=== PATIENT | female | born 1985 | race Caucasian/White ===

== ENCOUNTER 2020-08-05 13:13 | Outpatient (REF) | payer BC, SELFPAY ==
[2020-08-10 03:11] LABS: HPV mRNA E6/E7 rflx Not Detected (Not Detected)
== END 2020-08-05 13:14 | disposition home or self-care (01) ==
LOC: HO.LAB 13:13
PROVIDERS: PCP Internal Medicine; Visit Provider Advanced Practice Midwife
DX: Z01.419 Encounter for gynecological examination (general) (routine) without abnormal findings (principal); Z39.1 Encounter for care and examination of lactating mother
CPT/HCPCS: 87624; 87625; 88142

== ENCOUNTER 2023-11-03 07:27 | Outpatient (AMB) | payer BC, SELFPAY ==
[2023-11-03 07:34] VITALS: BP 108/64; BMI 22.1
--- NOTE | 2023-11-03 07:34 | A.OFFPC_ITS ---
Vital Signs 11/03/23 07:34 Height 5 ft 2 in Weight 121 lb BMI 22.1 BP 108/64 Blood Pressure Location Lt brachial Position Sitting Intake Visit Reasons: pe Intake Note: Patient here for a physical exam Pit Manager Required: No Accompanied by: Self / Same As Patient Allergies No Known Allergies [No Known Allergies*] Allergy (Verified 11/03/23 07:48) Medication List - Last Reconciled 11/03/23 by Basia Rivero MD No Known Home Meds Tobacco use date assessed: 11/03/23 Dental Screening Dental Screen Date: 11/03/23 Did you have a dental visit in the last 12 months?: Yes Did you have a dental problem in the last 6 months where you did not have access to dental care?: No Was dental information given to patient?: Patient has dentist HPI HPI Comments History of Present Illness Details This is a 38-year-old female that comes for her physical exam. Last Pap smear was 2019. Has a skin mole in left upper back that has to different colors. Will be referred to Dermatology. No chest pain or shortness of breath. FORMERLY [facility], [facility] Medical History Family history of diabetes mellitus in first degree relative Seasonal allergies Surgical History Hx of wisdom tooth extraction Family History Mother Osteoporosis Father Diabetes mellitus Family/Other Substance use disorder Social History Housing: House Alcohol intake: never Patient Tobacco Use Status: Never used Tobacco e-Cigarette/Vaping Use: Never Used Second Hand Smoke Exposure: No service: No Current occupational status: employed Current occupational exposures/hazards: No Gender identity: Female Cognitive needs: No Hearing needs: No Vision needs: No Female Reproductive History Menstrual Age of Menarche: 15 Questionnaire PHQ-9 Over the last 2 weeks, how often have you been bothered by any of the following problems? 1. Little interest or pleasure in doing things: not at all 2. Feeling down, depressed, or hopeless: not at all 3. Trouble falling or staying asleep, or sleeping too much: not at all 4. Feeling tired or having little energy: not at all 5. Poor appetite or overeating: not at all 6. Feeling bad about yourself - or that you are a failure or have let yourself or your family down: not at all 7. Trouble concentrating on things, such as reading the newspaper or watching television: not at all 8. Moving or speaking so slowly that other people could have noticed. Or the opposite - being so fidgety or restless that you have been moving around a lot more than usual: not at all 9. Thoughts that you would be better off or of hurting yourself in some way: not at all Total score: 0 Depression Screening Interpretation: Negative Depression Screening Done: Yes 33287 - PHQ-9 Billing: Yes Source: Developed by Drs. Madhu Burton, Lynda Conte, Roland Chandler and colleagues, with an educational delmis from [employer]. Thrive Questionnaire Date Thrive assessed: 11/03/23 I am a: Patient What is your living situation today?: I have a steady place to live Within the past 12 months, did the food you bought not last and you didn't have the money to get more?: Never true Within the past 12 months, did you worry whether your food would run out before you got money to buy more?: Never true Do you have trouble paying for medicines?: No Do you have trouble getting transportation to medical appointments?: No Do you have trouble paying your heating and electricity bill?: No Do you have trouble taking care of your child, family member or friend?: No Do you have trouble with day-to-day activities such as bathing, preparing meals, shopping, managing finances, etc.?: No Are you currently unemployed and looking for a job?: No Are you interested in more education?: No Please select the resources that you would like help with: None Currently or been in a relationship where the following occur: no concerns reported THRIVE Score: 0 AUDIT C Alcohol Use Questionnaire (AUDIT-C) 1. How often do you have a drink containing alcohol?: Never Total Score: 0 YOVANNY-7 AMB Questionnaire YOVANNY-7 Date YOVANNY - 7 assessed: 11/03/23 Feeling nervous, anxious, or on edge: 0 = Not at all Not being able to stop or control worryin = Not at all Worrying too much about different things: 0 = Not at all Trouble relaxin = Not at all Being so restless that it is hard to sit still: 0 = Not at all Becoming easily annoyed or irritable: 0 = Not at all Feeling afraid as if something awful might happen: 0 = Not at all Total YOVANNY-7 score (0-4 normal; 5-9 mild; 10-14 moderate; 15-21 severe): 0 Source: Developed by Drs. Madhu Burton, Lynda Conte, Roland Chandler and colleagues, with an educational delmis from [employer]. YOVANNY-7 Assessment Billing YOVANNY-7 Assessment Tool: YOVANNY-7 Assessment 47011 Review of Systems Const All systems reviewed & are unremarkable except as noted in HPI and below Eyes Reports no additional complaints, Denies change in vision and Denies other visual disturbances Card Denies chest pain at rest, Denies chest pain with activity, Denies edema, Denies irregular heart rhythm, Denies claudication, Denies dyspnea, Denies dyspnea on exertion, Denies orthopnea, Denies paroxysmal nocturnal dyspnea and Denies slow heart rate Resp Denies cough, Denies dyspnea and Denies dyspnea on exertion GI Denies abdominal pain, Denies change in bowel habits, Denies excessive flatus, Denies nausea and Denies vomiting Denies urinary incontinence, Denies urinary hesitancy and Denies urinary urgency Musc Denies abnormal gait, Denies atrophy, Denies deformity and Denies limited range of motion Skin/Breast Denies bleeding lesions, Denies changing lesions and Denies rash Neuro Denies abnormal gait, Denies behavioral changes, Denies confusion and Denies lack of coordination Psych Denies behavioral changes and Denies confusion Physical exam (Primary Care) Vital Signs: Last Vital Signs BP 108/64 11/03/23 07:34 BMI result Body Mass Index 22.1 Tobacco/Smoking Status: Tobacco use Status Tobacco use date assessed 11/03/23 11/03/23 07:39 Patient Tobacco Use Status Never used Tobacco 11/03/23 07:39 e-Cigarette/Vaping Use Never Used 11/03/23 07:39 PHQ-9: PHQ-9 Score PHQ-9: Total score 0 11/03/23 07:39 Depression Screening Interpretation: Negative Thrive Assessment: Date of Thrive Assessment Date Thrive assessed 11/03/23 11/03/23 07:39 Currently or been in a relationship where the following occur: no concerns reported Const General: No confusion Orientation/consciousness: patient oriented x3 and No confusion HENMT Head: Yes normal to inspection, Yes normocephalic and Yes atraumatic Ears: external ears normal General nose exam: Normal external nose present and No nasal discharge present Eyes General: appearance normal, both eyes and all related structures Eyelids: Yes eyelids normal Conjunctivae: conjunctivae normal Neck Neck: Yes normal visual inspection and Yes supple Resp Effort & Inspection: normal respiratory effort Auscultation: clear to auscultation bilaterally Cardio Jugular venous distension: no JVD Rate: regular rate Rhythm: regular rhythm Heart sounds: S1 normal heart sound present and S2 normal heart sound present GI Inspection: Yes normal to inspection Palpation (GI): Soft to palpation and nontender Auscultation: normal bowel sounds Skin General skin exam: no rashes or lesions noted Neuro General: patient oriented x3, no focal motor deficits and No confusion Extrem General: Yes full ROM Psych Appearance: grossly normal Assessment and Plan Assessment & Plan (1) Encounter for physical examination: Code(s): Z00.00 - Encounter for general adult medical examination without abnormal findings Plan: Repeat in a year. Orders: Orders Thyroid Stimulating Hormone Today R68.89 - Other general symptoms and signs Complete Blood Count Auto Diff Today D64.9 - Anemia, unspecified IRON PROFILE Today D64.9 - Anemia, unspecified Vitamin D 25-OH Total Today E55.9 - Vitamin D deficiency, unspecified Comprehensive [place]. Panel Fast Today Z00.00 - Encounter for general adult medical examination without abnormal findings Lipid Panel Today Z00.00 - Encounter for general adult medical examination without abnormal findings Referrals Dermatology Referral L98.9 - Disorder of the skin and subcutaneous tissue, unspecified Coding Level of Care Code Est Pt Prev Care 18-39y(81281) Diagnoses Encounter for physical examination Z00.00 Additional Codes YOVANNY-7 Assessment Billing - YOVANNY-7 Assessment Tool: YOVANNY-7 Assessment 03765 ([id number]) Time Spent (min) 31
== END 2023-11-03 07:56 | disposition home or self-care (01) ==
PROVIDERS: Visit Provider Internal Medicine
DX: Z00.00 Encounter for general adult medical examination without abnormal findings (principal)
CPT/HCPCS: 99395

== ENCOUNTER 2024-11-07 07:34 | Outpatient (AMB) | payer BC, SELFPAY ==
--- OUTSIDE RECORDS SUMMARY | 2024-11-07 07:37 | XMS_ITS | Clinical Summary ---
Author Organization [facility] Address [id number] [place] [phone] Care Team Providers Care Airplane Pilot Crop Dusting Name Role Phone Basia Rivero MD Primary Care Provider [phone] Social History Tobacco Use Types Packs/Day Years Used Date Smoking Tobacco: Never Assessed Comments Unknown Sex and Gender Information Value Date Recorded Sex Assigned at Not on file Legal Sex Female 8:57 PM EST Gender Identity Not on file Sexual Orientation Not on file Obstetrics History Plan of Treatment Health Maintenance Due Date Last Done Comments DTaP,Tdap,and Td Vaccines (1 - Tdap) 2006 Hepatitis B Vaccines (1 of 3 - 19+ 3-dose series) 2006 Cervical Cancer Screening: P ap Smear 02/07/2008 COVID-19 Vaccine (2023-2 5 season) 2024 Influenza Vaccine (#1) 2024 HIB Vaccines Aged Out No longer eligi ble based on patient's age to complete this topic HPV Vaccines Aged Out No longer eligi ble based on patient's age to complete this topic Hepatitis A Vaccines Aged Out No long er eligible based on patient's age to complete this topic IPV Vaccines Aged Out No longer eligi ble based on patient's age to complete this topic MMR Vaccines Aged Out No longer eligi ble based on patient's age to complete this topic Meningococcal ACWY Vaccine Aged Out N o longer eligible based on patient's age to complete this topic Meningococcal B Vacine Aged Out No lo nger eligible based on patient's age to complete this topic Pneumococcal Vaccine: Pediat rics (0 to 5 Years) and At-Risk Patients (6 to 64 Years) Aged Out No longer eligible b ased on patient's age to complete this topic RSV Immunization Patients Un david 20 months Aged Out No longer eligible b ased on patient's age to complete this topic Varicella Vaccines Aged Out No longer eligible based on patient's age to complete this topic Care Teams Airplane Pilot Crop Dusting Relationship Specialty Start Date End Date Basia Rivero MD [address] [place] [address] , [address] [facility] Physician Associ D/B/A: Juanita Luceroatinegin In Internal Medicine NADER Grant PCP - General Internal Medicine 02/01/20
--- NOTE | 2024-11-07 07:42 | A.OFFPC_ITS ---
Vital Signs 11/07/24 07:43 Height 5 ft 2 in Weight 122 lb BMI 22.3 BP 110/70 Blood Pressure Location Lt brachial Position Sitting Intake Visit Reasons: PE Intake Note: Patient here for a physical exam Creative Designer Required: No Accompanied by: Self / Same As Patient Allergies No Known Allergies [No Known Allergies*] Allergy (Verified 11/07/24 07:47) Medication List - Last Reconciled 11/07/24 by Basia Rivero MD No Known Home Meds Tobacco use date assessed: 11/07/24 Dental Screening Dental Screen Date: 11/07/24 Did you have a dental visit in the last 12 months?: Yes Did you have a dental problem in the last 6 months where you did not have access to dental care?: No Was dental information given to patient?: Patient has dentist HPI HPI Comments History of Present Illness Details This is a 39-year-old female that comes for physical exam. Last Pap smear was 2020 with HPV negative and will be referred to OBGYN for another Pap smear. Tdap vaccine up-to-date. Declines flu vaccine today. No acute complaints. Has history of anemia that CBC will be repeated. Family history of thyroid disease and would like her thyroid to be checked. [facility] Medical History (Updated 11/07/24 @ 08:02 by Basia Rivero MD) Family history of diabetes mellitus in first degree relative Seasonal allergies Surgical History Hx of wisdom tooth extraction Family History (Updated 11/07/24 @ 07:52 by Basia Rivero MD) Mother Osteoporosis Father Diabetes mellitus S/P CABG x 3 CHF (congestive heart failure) Family/Other Substance use disorder Social History Housing: House Alcohol intake: never Patient Tobacco Use Status: Never used Tobacco e-Cigarette/Vaping Use: Never Used Second Hand Smoke Exposure: No service: No Current occupational status: employed Current occupational exposures/hazards: No Gender identity: Female Cognitive needs: No Hearing needs: No Vision needs: No Female Reproductive History Menstrual Age of Menarche: 15 Questionnaire PHQ-9 Over the last 2 weeks, how often have you been bothered by any of the following problems? 1. Little interest or pleasure in doing things: not at all 2. Feeling down, depressed, or hopeless: not at all 3. Trouble falling or staying asleep, or sleeping too much: not at all 4. Feeling tired or having little energy: not at all 5. Poor appetite or overeating: not at all 6. Feeling bad about yourself - or that you are a failure or have let yourself or your family down: not at all 7. Trouble concentrating on things, such as reading the newspaper or watching television: not at all 8. Moving or speaking so slowly that other people could have noticed. Or the opposite - being so fidgety or restless that you have been moving around a lot more than usual: not at all 9. Thoughts that you would be better off or of hurting yourself in some way: not at all Total score: 0 Depression Screening Interpretation: Negative Depression Screening Done: Yes 49964 - PHQ-9 Billing: Yes Source: Developed by Drs. Madhu [place], Lynda Conte, Roland Chandler and colleagues, with an educational delmis from [employer]. Thrive Questionnaire Date Thrive assessed: 11/07/24 I am a: Patient What is your living situation today?: I have a steady place to live Within the past 12 months, did the food you bought not last and you didn't have the money to get more?: Never true Within the past 12 months, did you worry whether your food would run out before you got money to buy more?: Never true Do you have trouble paying for medicines?: No Do you have trouble getting transportation to medical appointments?: No Do you have trouble paying your heating and electricity bill?: No Do you have trouble taking care of your child, family member or friend?: No Do you have trouble with day-to-day activities such as bathing, preparing meals, shopping, managing finances, etc.?: No Are you currently unemployed and looking for a job?: No Are you interested in more education?: No Please select the resources that you would like help with: None Currently or been in a relationship where the following occur: No concerns reported THRIVE Score: 0 AUDIT C Alcohol Use Questionnaire (AUDIT-C) 1. How often do you have a drink containing alcohol?: Monthly or less 2. How many drinks containing alcohol do you have on a typical day when you are drinking?: 1 or 2 3. How often do you have six or more drinks on one occasion?: Never Total Score: 1 Score Reviewed/Action Taken: No YOVANNY-7 AMB Questionnaire YOVANNY-7 Date YOVANNY - 7 assessed: 11/07/24 Feeling nervous, anxious, or on edge: 1 = Several days Not being able to stop or control worryin = Several days Worrying too much about different things: 1 = Several days Trouble relaxin = Not at all Being so restless that it is hard to sit still: 0 = Not at all Becoming easily annoyed or irritable: 0 = Not at all Feeling afraid as if something awful might happen: 0 = Not at all Total YOVANNY-7 score (0-4 normal; 5-9 mild; 10-14 moderate; 15-21 severe): 3 Source: Developed by Drs. Madhu [place], Lynda Conte, Roland Chandler and colleagues, with an educational delmis from [employer]. YOVANNY-7 Assessment Billing YOVANNY-7 Assessment Tool: YOVANNY-7 Assessment 97346 Review of Systems Const All systems reviewed & are unremarkable except as noted in HPI and below Card Denies chest pain at rest, Denies chest pain with activity, Denies edema, Denies irregular heart rhythm, Denies claudication, Denies dyspnea, Denies dyspnea on exertion, Denies orthopnea, Denies paroxysmal nocturnal dyspnea and Denies slow heart rate Resp Denies cough, Denies dyspnea and Denies dyspnea on exertion GI Denies abdominal pain, Denies change in bowel habits, Denies excessive flatus, Denies nausea and Denies vomiting Denies urinary incontinence, Denies urinary hesitancy and Denies urinary urgency Musc Denies abnormal gait, Denies atrophy, Denies deformity and Denies limited range of motion Skin/Breast Denies bleeding lesions, Denies changing lesions and Denies rash Neuro Denies abnormal gait, Denies behavioral changes and Denies lack of coordination Psych Denies behavioral changes Physical exam (Primary Care) Vital Signs: Last Vital Signs BP 110/70 11/07/24 07:43 BMI result Body Mass Index 22.3 Tobacco/Smoking Status: Tobacco use Status Tobacco use date assessed 11/07/24 11/07/24 07:46 Patient Tobacco Use Status Never used Tobacco 11/07/24 07:46 e-Cigarette/Vaping Use Never Used 11/07/24 07:46 PHQ-9: PHQ-9 Score PHQ-9: Total score 0 11/07/24 07:46 Depression Screening Interpretation: Negative Thrive Assessment: Date of Thrive Assessment Date Thrive assessed 11/07/24 11/07/24 07:46 Currently or been in a relationship where the following occur: No concerns reported HENMT Head: Yes normal to inspection, Yes normocephalic and Yes atraumatic Ears: external ears normal Eyes General: appearance normal, both eyes and all related structures Eyelids: Yes eyelids normal Conjunctivae: conjunctivae normal Neck Neck: Yes normal visual inspection and Yes supple Resp Effort & Inspection: normal respiratory effort Auscultation: clear to auscultation bilaterally Cardio Jugular venous distension: no JVD Rate: regular rate Rhythm: regular rhythm Heart sounds: S1 normal heart sound present and S2 normal heart sound present GI Inspection: Yes normal to inspection Palpation (GI): Soft to palpation and nontender Auscultation: normal bowel sounds Skin General skin exam: no rashes or lesions noted Neuro General: no focal motor deficits Extrem General: Yes full ROM Psych Appearance: grossly normal Office Procedures Flu Questionnaire Does the patient have a severe egg allergy?: No Immunizations Fluarix Triv [id number] (PF) 45 mcg (15 mcg x 3)/0.5 mL IM syringe Performing Provider: Basia Rivero MD [facility] Documented (not given) by: JAMISON Mojica on 11/07/24 07:46 Reason Not Given: Patient Refused Coding Level of Care Code Est Pt Level 3 (70440) Est Pt Prev Care 18-39y(38979) Diagnoses Encounter for physical examination Z00.00 Family history of thyroid disease Z83.49 Anemia D64.9 Additional Codes PHQ-9 - 89112 - PHQ-9 Billing: Yes ([id number]) YOVANNY-7 Assessment Billing - YOVANNY-7 Assessment Tool: YOVANNY-7 Assessment 89119 ([id number]) Time Spent (min) 31 Assessment & Plan Assessment & Plan (1) Encounter for physical examination: Code(s): Z00.00 - Encounter for general adult medical examination without abnormal findings Category: Medical Plan: Repeat in a year. (2) Family history of thyroid disease: Code(s): Z83.49 - Family history of other endocrine, nutritional and metabolic diseases Category: Medical Plan: TSH ordered. (3) Anemia: Code(s): D64.9 - Anemia, unspecified Category: Medical Plan: CBC ordered. Orders: Orders Influenza [id number] Immunization Today Z23 - Encounter for immunization Complete Blood Count Auto Diff Today D64.9 - Anemia, unspecified IRON PROFILE Today D64.9 - Anemia, unspecified Comprehensive [place]. Panel Fast Today Z00.00 - Encounter for general adult medical examination without abnormal findings Lipid Panel Today Z00.00 - Encounter for general adult medical examination without abnormal findings Thyroid Stimulating Hormone Today Z83.49 - Family history of other endocrine, nutritional and metabolic diseases Referrals [facility] Referral Z12.4 - Encounter for screening for malignant neoplasm of cervix
[2024-11-07 07:43] VITALS: BP 110/70; BMI 22.3
== END 2024-11-07 07:58 | disposition home or self-care (01) ==
PROVIDERS: PCP Internal Medicine; Visit Provider Internal Medicine
DX: Z00.00 Encounter for general adult medical examination without abnormal findings (principal); D64.9 Anemia, unspecified; Z83.49 Family history of other endocrine, nutritional and metabolic diseases; Z23 Encounter for immunization

== ENCOUNTER → 2024-11-07 07:34 | Outpatient (BNVA) | payer BC, SELFPAY | PROVIDERS: PCP Internal Medicine; Visit Provider Internal Medicine | DX: Z00.00 Encounter for general adult medical examination without abnormal findings (principal); D64.9 Anemia, unspecified; Z83.49 Family history of other endocrine, nutritional and metabolic diseases | CPT/HCPCS: 96127 ==

== ENCOUNTER 2024-11-11 06:56 | Outpatient (REF) | payer BC, SELFPAY ==
[2024-11-11 07:05] LABS: MANUAL DIFF FLAG NO
[2024-11-11 07:38] LABS: Basophils Percent Auto 0.5 % (0-2); Eosinophils Absolute Auto 0.2 X10*3/uL (0.0-0.4); Eosinophils Percent Auto 2.6 % (0-4); Hematocrit 37.2 % (37.0-47.0); Imm Gran Abs Auto 0.02 X10*3/uL (0.00-0.03); Imm Gran Pct Auto 0.3 % (0.0-0.4); Lymphocytes Absolute Auto 2.4 X10*3/uL (1.2-4.9); Lymphocytes Percent Auto 39.1 % (20-40); Mean Corpuscular HGB Conc 32.3 g/dl (31.0-35.0); Mean Corpuscular Hemoglobin 28.8 pg (27.0-33.0); Mean Corpuscular Volume 89.2 fL (80.0-98.0); Mean Platelet Volume 10.2 fL (9.4-12.3); Monocytes Absolute Auto 0.5 X10*3/uL (0.1-1.2); Monocytes Percent Auto 7.7 % (2-11); Neutrophils Percent Auto 49.8 % (45-73); Platelet Count 247 X10*3/uL (160-400); Red Blood Count 4.17 X10*6/uL (4.20-5.50); Red Cell Distribution Width 13.7 % (11.0-16.0); White Blood Count 6.1 X10*3/uL (4.8-10.8)
[2024-11-11 08:16] LABS: Alanine Aminotransferase 12 U/L (0-31); Albumin Level 4.4 g/dL (3.5-5.0); Alkaline Phosphatase 37 U/L (39-117); Anion Gap 11 (12-20); Aspartate Amino Transferase 19 U/L (5-31); Bilirubin Total 0.4 mg/dL (0.0-1.0); Blood Urea Nitrogen 16 mg/dL (9-16); Calcium 9.1 mg/dL (8.4-10.2); Carbon Dioxide 24 mmol/L (22-29); Chloride 110 mmol/L (96-108); Cholesterol 185 mg/dL (<200); Estimated Glomerular Filt Rate > 60; Glucose Fasting 93 mg/dL (60-99); HDL Cholesterol 61 mg/dL (>40); Iron 106 mcg/dL (30-160); LDL Cholesterol Calculated 112 mg/dL (<100); Percent Iron Saturation 38 % (15-50); Potassium 3.9 mmol/L (3.3-5.1); Sodium 141 mmol/L (135-145); Total Iron Binding Capacity 278 mcg/dL (228-428); Total Protein 7.6 g/dL (6.5-8.0); Triglycerides 62 mg/dL (<150); Unsaturated Iron Binding 172 ug/dL
[2024-11-11 08:20] LABS: Thyroid Stimulating Hormone 1.62 uIU/mL (0.32-4.0)
== END 2024-11-11 06:57 | disposition home or self-care (01) ==
LOC: HO.LAB 06:56
PROVIDERS: PCP Internal Medicine; Visit Provider Internal Medicine
DX: Z00.00 Encounter for general adult medical examination without abnormal findings (principal); D64.9 Anemia, unspecified; Z83.49 Family history of other endocrine, nutritional and metabolic diseases; Z13.220 Encounter for screening for lipoid disorders
CPT/HCPCS: 36415; 80053; 80061; 83540; 84443; 85025

== ENCOUNTER 2025-07-18 08:59 | Outpatient (AMB) | payer BC, SELFPAY ==
--- OUTSIDE RECORDS SUMMARY | 2024-08-03 10:00 | XMS_ITS | Encounter Summary ---
Author Organization [facility] Address [address] [place] [address] [place] [phone] Phone Care Team Providers Care Authorization Representative Name Role Phone Basia Brown MD Primary Care Provid er Encounter Details Date Type Department Care Team (Late st Contact Info) Description 08/03/2024 10:00 AM EST Hospital Encounter [facility] [address] [place] [id number] Linda Valdovinos CNP [address] [place] [address] [email or web address] Social History Tobacco Use Types Packs/Day Years [...] report originally createdby Pawan Bruce. Linda Valdovinos ACOUSTICAL TILE DRILL PRESS OPERATOR IMG XR CHEST Final Resul t documented in this encounter Visit Diagnoses Not on filedocumented in this encounter Additional Health Concerns Infection Onset Date Last Indicated Resolved Time CoV-Risk 08/03/2024 08/03/2024 08/14/2024 1:21 AM EST documented as of this encounter Care Teams Authorization Representative Relationship Specialty Start Date End Date Basia Brown MD [address] [place] [address] PCP - General Internal Medicine 11/11/22 documented as of this encounter Additional Source Comments The information contained in this document represents components of the legal health record. It is not the complete legal health record.[facility]
--- NOTE | 2025-07-18 09:04 | MHC.OFFVIS ---
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 She is sexually active she has no concerns about STIs or if it happens it happens. 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 She believes she is aware of ovulation she had her period about 2 weeks ago and does thinks she may have ovulated yesterday. She said she is not exactly anemic but her iron was a little low so she was taking iron about once a week but it bothers her stomach so she often does not take it. [facility] Medical History Family history of diabetes mellitus in first degree relative Seasonal allergies Surgical History Hx of wisdom tooth extraction Family History Mother Osteoporosis Father Diabetes mellitus S/P CABG x 3 CHF (congestive heart failure) Family/Other Substance use disorder Social History Housing: House Alcohol intake: never Patient Tobacco Use Status: Never used Tobacco e-Cigarette/Vaping Use: Never Used Second Hand Smoke Exposure: No service: No Current occupational status: employed Current occupational exposures/hazards: No Gender identity: Female Cognitive needs: No Hearing needs: No Vision needs: No Female Reproductive History Menstrual Age of Menarche: 15 Duration of menses: 3-5 days Date of last menstrual period: 06/27/25 control method: none Total pregnancies: 2 Full term: 2 History of abnormal pap smear: No Physical Exam Vital Signs: Last Vital Signs BP 100/60 07/18/25 09:07 BMI result Body Mass Index 22.3 Const General: healthy appearing, comfortable, no acute distress, well developed and alert Nutritional Appearance: average body habitus Orientation/consciousness: patient oriented x3 Limitations: no limitations HEENT Head: Yes normocephalic Neck Neck: Yes normal visual inspection Chest Chest palpation & inspection: normal inspection of the chest Breast/axilla inspection: normal inspection of the breasts and normal inspection of the axillae Breast/axilla palpation: normal palpation of the breasts and normal palpation of the axillae Resp Effort & Inspection: normal respiratory effort GI Inspection: Yes normal to inspection, No Abdominal wall edema and No distended Palpation (GI): Soft to palpation and nontender Other: Normal external exam vagina is pink and moist healthy clear mucus consistent with possible recent ovulation cervix multiparous pink smooth healthy long close thick mobile nontender uterus is midposition to slightly posterior but neither anteverted or retroverted mobile and nontender adnexa nontender good tone with Kegel. General: Yes bladder normal to palpation External Female Exam: normal external appearance and normal appearance of the urethra Speculum Exam - Vagina: normal appearance of the vagina, normal palpation and normal vaginal discharge Speculum Exam - Cervix: normal appearance of the cervix, normal palpation and nontender Bimanual exam- vagina & uterus: normal bimanual exam, normal palpation, uterine size normal, bladder normal to palpation, consistency normal, normal palpation, uterine mobility normal, uterine shape normal, No Cervical tenderness present, non-tender and no cervical motion tenderness Bimanual Exam- Adnexa, other: normal adnexae, no masses, normal and No adnexal tenderness Neuro General: patient oriented x3 Assessment & Plan Assessment & Plan (1) Screening for cervical cancer: Code(s): Z12.4 - Encounter for screening for malignant neoplasm of cervix Category: Medical (2) Well woman exam with routine gynecological exam: Code(s): Z01.419 - Encounter for gynecological examination (general) (routine) without abnormal findings Category: Medical (3) Practices contraception based on menstrual cycle: Comment: Is aware of where she is in her cycle. Code(s): Z78.9 - Other specified health status Category: Social Hx Plan -----Discussed in this visit the following: healthy balanced diet, regular and consistent exercise, getting recommended health screens, doing the best she can for her particular health concerns, kegel exercises, pap smear screening and followup recommendations, mammography screening and SBE, normal changes in cycles in her life stage--- . Discussed her healthy diet and follow-up with her primary care provider discussed that while we say come back every year if she has no particular vault mechanic concerns she may make her own decisions though her next Pap smear would be due in 5 years if she ever did need anything else in the way of contraception or testing for anything she could let us know periods she keeps up with her primary care provider. Mammograms with start for her at age 42 as she has no family history otherwise. She is a runner and so she keeps herself healthy. Discussed the challenges of safe running with day light dwindling so quickly in the afternoon. Coding Level of Care Code New Pt Prev Care 18-39yr(13480 Diagnoses Screening for cervical cancer Z12.4 Well woman exam with routine gynecological exam Z01.419 Practices contraception based on menstrual cycle Z78.9
[2025-07-18 09:07] VITALS: BP 100/60; BMI 22.3
--- OUTSIDE RECORDS SUMMARY | 2025-07-18 09:34 | XMS_ITS | Clinical Summary ---
Author Organization [facility] Address [address] [facility] [address] [place], [place] [id number] Phone Care Team Providers Care Office Equipment Technician Name Role Phone Basia Brown MD Primary Care Provid er Allergies No known active allergies Medications albuterol 90 mcg/actuation inhaler Inhale 2 puffs into the lungs every 6 (six) hours as needed for wheezing. 8.5 g Active Additional Information Patient not taking.Reported on 01/30/2025 Active Problems No known active problems Immunizations Immunization Administration Dates Next Due INFLUENZA, SPLIT VIRUS, TRIVALENT PF 07/05/2018 Influenza Quadrivalent Preservative Free IM 06/15 Tdap 12/08/2019 Social History Tobacco Use Types Packs/Day Years Used Date Smoking Tobacco: Never Passive Smoke Exposure: Never Smokeless Tobacco: Never Tobacco Cessation:Counseling Given: Not Answered Education Answer Date Recorded Are you interested [...] on file Sexual Orientation Not on file Last Filed Vital Signs Vital Sign Reading Time Taken Comments Blood Pressure 101/82 01/30/2025 5:16 PM EDT Pulse 63 01/30/2025 5:16 PM EDT Temperature 36.4 C (97.6 F) 01/30/2025 5:16 PM EDT Respiratory Rate 16 01/30/2025 5:16 PM EDT Oxygen Saturation 100% 01/30/2025 5:16 PM EDT Inhaled Oxygen Concentration - - Weight 53.5 kg (118 lb) 08/06/2024 11:15 AM EST Height 157.5 cm (5' 2 ) 08/06/2024 11:15 AM EST Body Mass Index 21.58 08/06/2024 11:15 AM EST Plan of Treatment Health Maintenance Due Date Last Done Comments DEPRESSION SCREENING 1999 HEPATITIS C SCREENING 2005 HIV ONE-TIME SCREENING (18-6 5 YEARS) 2005 PAP SMEAR 02/07/2008 INFLUENZA VACCINE (#1) 2025 9, 07/05/2018 COVID-19 VACCINE (2 6 season) 2025 12/15/2020, 11/24/2020 Adult Td,Tdap Booster 12/07/2029 12/08/2019 , 09/01/2016 SMOKING STATUS SCREENING (On ce After 26 Yrs) Completed 01/30/2025 HEPATITIS A VACCINES Aged Out No long er eligible based on patient's age to complete this topic HIB VACCINES Aged Out No longer eligi ble based on patient's age to complete this topic MENINGOCOCCAL VACCINES (ACWY) Aged Out No longer eligible based on patient's age to complete this topic MENINGOCOCCAL VACCINES (B) Aged Out N o longer eligible based on patient's age to complete this topic PNEUMOCOCCAL VACCINES (0-49 years) Aged Out No longer eligible b ased on patient's age to complete this topic Medical Devices Not on file [place] [address] [place] [address] [facility] Care Teams Office Equipment Technician Relationship Specialty Start Date End Date Basia Brown MD [address] [place] [address] PCP - General Internal Medicine 11/11/22 Additional Source Comments The information contained in this document represents components of the legal health record. It is not the complete legal health record.[facility]
--- OUTSIDE RECORDS SUMMARY | 2025-07-18 09:34 | XMS_ITS | Clinical Summary ---
Author Organization [facility] ity Address [address] [place] [id number] Care Team Providers Care Deck Steward Name Role Phone Basia Rivero MD Primary Care Provider [phone] Social History Tobacco Use Types Packs/Day Years [...] Cervical Cancer Screening: P ap Smear 02/07/2008 HPV Vaccines (1 - 3-dose SCD M series) 2014 Depression Screening 09/13/2024 COVID-19 Vaccine ( - 2023-2 5 season) 2025 Influenza Vaccine (#1) 2025 RSV Immunization Adult Patie nts (1 - 1-dose 75+ series) 2062 HIB Vaccines Aged Out No longer eligi [...] age to complete this topic Meningococcal B Vaccine Aged Out No l onger eligible based on patient's age to complete this topic Pneumococcal Vaccine: Pediat rics (0 to 5 Years) and At-Risk Patients (6 to 49 Years) Aged Out No longer eligible b ased on patient's age to complete this topic RSV Immunization Patients Un david 20 months Aged Out No longer eligible b ased on patient's age to complete this topic Varicella Vaccines Aged Out No longer eligible based on patient's age to complete this topic Care Teams Deck Steward Relationship Specialty Start Date End Date Basia Rivero MD [address] [place] [address] , [address] [facility] D/B/A: [facility] [place] PCP - General Internal Medicine 02/01/20
== END 2025-07-18 12:09 | disposition home or self-care (01) ==
LOC: HO.HWSM 08:59
PROVIDERS: PCP Internal Medicine; Visit Provider Advanced Practice Midwife
DX: Z01.419 Encounter for gynecological examination (general) (routine) without abnormal findings (principal); Z78.9 Other specified health status
CPT/HCPCS: 99385; 99459

== ENCOUNTER 2025-07-18 08:59 | Outpatient (REF) | payer BC, SELFPAY ==
--- OUTSIDE RECORDS SUMMARY | 2024-08-03 10:00 | XMS_ITS | Encounter Summary ---
Author Organization [facility] Address [address] [place] [address] [place] [phone] Phone Care Team Providers Care Cartographic Aide Name Role Phone Basia Brown MD Primary Care Provid er Encounter Details Date Type Department Care Team (Late st Contact Info) Description 08/03/2024 10:00 AM EST Hospital Encounter [facility] [address] [place] [id number] Linda Valdovinos CNP [address] [place] [address] Social History Tobacco Use Types Packs/Day Years Used Date Smoking Tobacco: Never Passive Smoke Exposure: Never Smokeless Tobacco: Never Education Answer Date Recorded Are you interested in more education? Not on ele e 01/08/2023 Are you concerned about learning? Not on file 01/08/2023 No 01/08/2023 No 01/08/2023 Digital Access Answer Date Recorded No 02/07/2023 No 02/07/2023 Reliable internet access at home? Not on file 02/07/2023 Device with a working camera? Not on file Comments Unknown Sex and Gender Information Value Date Recorded Sex Assigned at Not on file Legal Sex Female 8:57 AM EST Gender Identity Not on file Sexual Orientation Not on file documented as of this encounter Plan of Treatment Not on file documented as of this encounter Procedures Procedure Name Priority Date/Time Associated Diagnosis Comments XR CHEST PA AND LATERAL 2 VIEWS Urgent/patient waiting 08/03/2024 10:07 AM EST Cough documented in this encounter Results * XR CHEST PA AND LATERAL 2 VIEWS (08/03/2024 10:07 AM EST) Anatomical Region Laterality Modality Chest Computed Radiogr aphy 08/03/2024 10:0 9 AM EST Impressions 08/03/2024 10:19 AM EST No acute abnormality. ATTESTATION: Portia Mccarthy as teaching physician, have reviewed the images for this case and if necessary edited the report originally created by Pawan Bruce. Narrative 08/03/2024 10:19 AM EST XR CHEST PA AND LATERAL 2 VIEWS Referring clinician's provided indication for this examination in Epic: Cough; fatigue/ kids w/ pneumonia 2 weeks ago/ diminished RLL COMPARISON: None FINDINGS: Devices/Tubes/Lines: None. Lungs: The lungs are clear. No focal consolidation or pulmonary edema. Pleura: No pleural effusion or pneumothorax. Heart/Mediastinum: The heart and mediastinum are normal. Bones/Soft Tissues: No significant skeletal abnormality. Procedure Note Portia Odonnell MD, NATALY - 08/03/2024 XR CHEST PA AND LATERAL 2 VIEWS Referring clinician's provided indication for this examination in Epic:Cough; fatigue/ kids w/ pneumonia 2 weeks ago/ diminished RLL COMPARISON: None FINDINGS: Devices/Tubes/Lines: None. Lungs: The lungs are clear. No focal consolidation or pulmonary edema. Pleura: No pleural effusion or pneumothorax. Heart/Mediastinum: The heart and mediastinum are normal. Bones/Soft Tissues: No significant skeletal abnormality. IMPRESSION: No acute abnormality. ATTESTATION: Portia Mccarthy as teaching physician, have reviewed theimages for this case and if necessary edited the report originally createdby Pawan Bruce. Linda Valdovinos REFINING STILL OPERATOR IMG XR CHEST Final Resul t documented in this encounter Visit Diagnoses Not on filedocumented in this encounter Additional Health Concerns Infection Onset Date Last Indicated Resolved Time CoV-Risk 08/03/2024 08/03/2024 08/14/2024 1:21 AM EST documented as of this encounter Care Teams Cartographic Aide Relationship Specialty Start Date End Date Basia Brown MD [address] [place] [address] PCP - General Internal Medicine 11/11/22 documented as of this encounter Additional Source Comments The information contained in this document represents components of the legal health record. It is not the complete legal health record.[facility]
--- OUTSIDE RECORDS SUMMARY | 2025-07-18 17:48 | XMS_ITS | Clinical Summary ---
Author Organization [facility] Address [address] [facility] [address] [place], [place] [id number] Phone Care Team Providers Care Marketing And Communications Officer Name Role Phone Basia Brown MD Primary [...] topic Medical Devices Not on file [place] [address] [facility] Care Teams Marketing And Communications Officer Relationship Specialty Start Date End Date Basia Brown MD [address] [place] [address] PCP - General Internal Medicine 11/11/22 Additional Source Comments The information contained in this document represents components of the legal health record. It is not the complete legal health record.[facility]
--- OUTSIDE RECORDS SUMMARY | 2025-07-18 17:48 | XMS_ITS | Clinical Summary ---
Author Organization [facility] ity Address [id number] [place] [phone] Care Team Providers Care Felt Puller Name Role Phone Basia Rivero MD Primary Care Provider [phone] Social History Tobacco Use Types Packs/Day Years [...] age to complete this topic Care Teams Felt Puller Relationship Specialty Start Date End Date Basia Rivero MD [address] [place] [address] , [address] [facility] D/B/A: [facility] PCP - General Internal Medicine 02/01/20
== END 2025-07-18 09:00 | disposition home or self-care (01) ==
LOC: HO.LNP 08:59
PROVIDERS: PCP Internal Medicine; Visit Provider Advanced Practice Midwife
DX: Z01.419 Encounter for gynecological examination (general) (routine) without abnormal findings (principal); Z11.51 Encounter for screening for human papillomavirus (HPV); Z78.9 Other specified health status
CPT/HCPCS: 87626; 88175